=== PATIENT | male | born 1960 | race Caucasian/White ===

== ENCOUNTER → 2020-08-29 07:41 | Outpatient (CLI) | payer OTHER, SELFPAY ==
[2020-08-29 08:44] LABS: Alanine Aminotransferase 26 IU/L (<50); Albumin Globulin Ratio 1.4 (1.0-2.8); Alkaline Phosphatase 86 U/L (38-126); Aspartate Aminotransferase 30 IU/L (17-59); BUN Creatinine Ratio 17.4 (6-22); Bilirubin Total 0.5 mg/dL (0.2-1.3); Blood Urea Nitrogen 19 mg/dL (9-20); Calcium 9.3 mg/dL (8.4-10.2); Carbon Dioxide 25 mmol/L (22-32); Chloride 106 mmol/L (98-107); Cholesterol 221 mg/dL (140-199); Estimated Glomerular Filt Rate > 60.0 mL/min (>60); Globulin 2.8 g/dL (1.7-4.1); Glucose 104 mg/dL (70-100); HDL Cholesterol 43 mg/dL (40-60); HEMOLYSIS < 15 (0-50); LDL Cholesterol Calculated 157 mg/dL (<100); Potassium 4.4 mmol/L (3.4-5.1); Sodium 138 mmol/L (137-145); Total Protein 6.8 g/dL (6.3-8.2); Triglycerides 105 mg/dL (35-150)
[2020-09-04 08:30] LABS: Percent Free Testosterone 2.59 % (1.50-4.20); Testosterone Free 7.76 ng/dL (5.00-21.00); Testosterone Total 299.7 ng/dL (264.0-916.0)
== END ==
PROVIDERS: PCP Internal Medicine; Referring Provider Internal Medicine; Visit Provider Internal Medicine
DX: Z13.1 Encounter for screening for diabetes mellitus (principal); Z13.220 Encounter for screening for lipoid disorders; Z12.5 Encounter for screening for malignant neoplasm of prostate; E29.1 Testicular hypofunction
CPT/HCPCS: 36415; 80053; 80061; 84402; 84403; G0103

== ENCOUNTER → 2021-01-15 09:12 | Outpatient (CLI) | payer OTHER, SELFPAY ==
[2021-01-15 14:43] LABS: COVID19 -Nasal RAPID Negative (Negative)
== END ==
PROVIDERS: PCP Internal Medicine; Visit Provider Specialist
DX: Z01.812 Encounter for preprocedural laboratory examination (principal); Z20.822 Contact with and (suspected) exposure to COVID-19
CPT/HCPCS: 87635; C9803

== ENCOUNTER 2021-01-16 09:02 | Day surgery (SDC) | payer OTHER, SELFPAY ==
[2021-01-16 09:16] VITALS: BP 153/91; PULSE 91; RESP 14; TEMP 36.3; O2SAT 98; BMI 25.1
[2021-01-16] MEDS: LACTATED RINGERS 1,000 ML 200 ML IV (09:35)
--- NOTE | 2021-01-16 10:06 | PM.PREOP ---
Pre-operative Note COVID-19 COVID-19 status: Negative Result date/Date tested (Pos, Neg/Pending): 01/15/21 Interval Note History & Physical reviewed/Exam performed by Physician: Yes Changes to H&P: No ASA Class (for procedural sedation): I
[2021-01-16] MEDS: fentaNYL 250 MCG/5 ML INJ IV (10:26)
[2021-01-16] MEDS: MIDAZOLAM 5 MG/5 ML VIAL IV (10:26)
--- NOTE | 2021-01-16 10:41 | PM.OP.ENDO ---
Operative Date/Time/Diagnoses Date of procedure: 01/16/21 Time of procedure: 10:41 Pre-op diagnosis: Uncertain causes Post-op diagnosis: same (Hemorrhoid at the anal verge.) Procedure & Clinicians Study performed: Colonoscopy Same procedure as scheduled: Yes Indications: Rectal bleeding Surgeon: Jose M Ronquillo Procedure Notes SCOAP/Timeout: Performed Procedure in detail: The patient was placed in the left lateral decubitus position and underwent IV sedation directed by the surgeon consisting of fentanyl and Versed. Digital exam was unremarkable. Prostate normal in size for age. No masses.. The scope was inserted and advanced through the rectum into the sigmoid, descending, transverse, and ascending colon. No lesions were seen on the way in.. The cecum was reached identified by the ileocecal valve and the appendiceal opening. The ileocecal valve was briefly cannulated. The terminal ileum was normal in appearance. The scope was gradually brought out. No Polyps were found. Careful search in the sigmoid revealed 1 or 2 very small diverticulum. The scope ultimately was retroflexed in the rectum. The appearance was remarkable for small internal hemorrhoids.. The scope was removed slowly through the anus and I noted 1 hemorrhoid at the anal verge that may well have been the source of the patient's blood. The scope was completely removed And the patient tolerated the procedure well. The prep was very good. Scope withdrawal time: 8 minutes Sedation minutes: 23 Complications: none Post-procedure Recommendations: Colonscopy in 10 years Follow up: as needed Disposition: PACU
[2021-01-16 10:43] VITALS: BP 115/77; PULSE 85; RESP 10; TEMP 37.5; O2SAT 96
[2021-01-16 10:48] VITALS: BP 123/92; PULSE 84; RESP 12; O2SAT 95
[2021-01-16 10:53] VITALS: BP 126/85; PULSE 78; RESP 16; O2SAT 97
--- NOTE | 2021-01-16 10:58 | SUR.PHASEI ---
Received to PACU after colonoscopy. Report received from ALEXX Crespo.
[2021-01-16 11:20] VITALS: BP 125/81; PULSE 91; RESP 16; TEMP 37.3; O2SAT 97
--- NOTE | 2021-01-16 11:38 | SUR.PHASEII ---
Pt ready to go, left in stable condition.
== END 2021-01-16 11:20 | disposition home or self-care (01) ==
PROVIDERS: PCP Internal Medicine; Referring Provider Specialist; Visit Provider Specialist
PROC: 0DJD8ZZ Inspection of Lower Intestinal Tract, Via Natural or Artificial Opening Endoscopic (ICD-10-PCS; CPT 45378; principal; 2021-01-16 10:00)
DX: K62.5 Hemorrhage of anus and rectum (principal); K64.4 Residual hemorrhoidal skin tags
CPT/HCPCS: 45378; 99152; J2250; J3010

== ENCOUNTER → 2022-01-09 15:48 | Outpatient (CLI) | payer OTHER, SELFPAY ==
[2022-01-09 16:40] LABS: Alanine Aminotransferase 32 IU/L (<50); Albumin 4.3 g/dL (3.5-5.0); Albumin Globulin Ratio 1.3 (1.0-2.8); Alkaline Phosphatase 96 U/L (38-126); Aspartate Aminotransferase 34 IU/L (17-59); BUN Creatinine Ratio 13.8 (6-22); Bilirubin Total 0.6 mg/dL (0.2-1.3); Blood Urea Nitrogen 15 mg/dL (9-20); Calcium 8.7 mg/dL (8.4-10.2); Carbon Dioxide 27 mmol/L (22-32); Chloride 107 mmol/L (98-107); Cholesterol 233 mg/dL (140-199); Estimated Glomerular Filt Rate > 60 mL/min (>60); Globulin 3.3 g/dL (1.7-4.1); Glucose 118 mg/dL (80-110); HDL Cholesterol 40 mg/dL (40-60); HEMOLYSIS 29 (0-50); LDL Cholesterol Calculated 149 mg/dL (<100); Potassium 4.5 mmol/L (3.4-5.1); Sodium 141 mmol/L (137-145); Total Protein 7.6 g/dL (6.3-8.2); Triglycerides 218 mg/dL (35-150)
[2022-01-09 17:08] LABS: Prostate Specific Antigen Scrn 0.591 ng/mL (0.1-4.0)
[2022-01-19 13:48] LABS: Percent Free Testosterone 2.11 % (1.50-4.20); Testosterone Free 10.07 ng/dL (5.00-21.00); Testosterone Total 477.2 ng/dL (264.0-916.0)
== END ==
PROVIDERS: PCP Internal Medicine; Referring Provider Internal Medicine; Visit Provider Internal Medicine
DX: E29.1 Testicular hypofunction (principal); R79.89 Other specified abnormal findings of blood chemistry; Z13.1 Encounter for screening for diabetes mellitus; Z12.5 Encounter for screening for malignant neoplasm of prostate
CPT/HCPCS: 36415; 80053; 80061; 84402; 84403; G0103

== ENCOUNTER → 2023-05-21 10:20 | Outpatient (CLI) | payer OTHER, SELFPAY ==
[2023-05-21 11:29] LABS: Alanine Aminotransferase 28 IU/L (<50); Albumin 4.6 g/dL (3.5-5.0); Albumin Globulin Ratio 1.4 (1.0-2.8); Alkaline Phosphatase 71 U/L (38-126); Aspartate Aminotransferase 27 IU/L (17-59); BUN Creatinine Ratio 12.8 (6-22); Bilirubin Total 0.9 mg/dL (0.2-1.3); Blood Urea Nitrogen 15 mg/dL (9-20); Calcium 9.9 mg/dL (8.4-10.2); Carbon Dioxide 29 mmol/L (22-32); Chloride 102 mmol/L (98-107); Cholesterol 239 mg/dL (140-199); Estimated Glomerular Filt Rate > 60 mL/min (>60); Globulin 3.4 g/dL (1.7-4.1); Glucose 108 mg/dL (80-110); HDL Cholesterol 46 mg/dL (40-60); HEMOLYSIS < 15 (0-50); LDL Cholesterol Calculated 167 mg/dL (<100); Potassium 4.8 mmol/L (3.4-5.1); Sodium 139 mmol/L (137-145); Triglycerides 131 mg/dL (35-150)
[2023-05-21 11:58] LABS: Prostate Specific Antigen Scrn 0.706 ng/mL (0.1-4.0)
[2023-05-27 08:09] LABS: Percent Free Testosterone 1.72 % (1.50-4.20); Testosterone Free 8.79 ng/dL (5.00-21.00); Testosterone Total 510.8 ng/dL (264.0-916.0)
== END ==
PROVIDERS: PCP Internal Medicine; Referring Provider Internal Medicine; Visit Provider Internal Medicine
DX: E29.1 Testicular hypofunction (principal); R79.89 Other specified abnormal findings of blood chemistry; Z13.6 Encounter for screening for cardiovascular disorders; Z79.899 Other long term (current) drug therapy; Z12.5 Encounter for screening for malignant neoplasm of prostate
CPT/HCPCS: 36415; 80053; 80061; 84402; 84403; G0103

== ENCOUNTER 2024-11-07 16:39 | Emergency (ER) | payer BC, SELFPAY ==
[2024-11-07] VITALS (109 sets, daily range): BP systolic 70–175; BP diastolic 49–113; PULSE 95–125; RESP 18–36; TEMP 34.3–37; O2SAT 85–96
[2024-11-07] MEDS: SODIUM CHLORIDE 0.9% 1,000 ML 1000 ML IV (16:45)
--- NOTE | 2024-11-07 16:50 | EKG_ITS ---
[address] [address] Test Date: 2024-11-07 Pat Name: Dheeraj Champion Department: Room: Gender: Male [employer]: : [id number] Requested By: Order Number: [id number] Reading MD: John Petit MD Measurements Intervals [place] Rate: 112 P: 86 OR: 156 QRS: -72 QRSD: 174 T: 85 QT: 366 QTc: 499 Interpretive Statements Sinus tachycardia Right bundle branch block Left anterior fascicular block Bifascicular block NO PRIOR TRACING Electronically Signed On 11-07-2024 17:17:02 PDT by John Petit MD
--- NOTE | 2024-11-07 16:50 | DI.RAD.S_ITS ---
PROCEDURE: XR CHEST 1V INDICATIONS: cpr TECHNIQUE: One view of the chest was acquired. COMPARISON: None. FINDINGS: Surgical changes and devices: ET tube in satisfactory position. Lungs and pleura: Right greater than left fluffy pulmonary infiltrates. No pleural effusions or pneumothorax. Mediastinum: Mediastinal contours appear normal. Heart size is normal. Bones and chest wall: No suspicious bony lesions. Overlying soft tissues appear unremarkable. IMPRESSION: ET tube in satisfactory position. Asymmetric pulmonary edema versus bilateral pneumonia. Dictated by: Eder Salguero M.D. on 11/07/2024 at 17:03 Approved by: Eder Salguero M.D. on 11/07/2024 at 17:04
--- NOTE | 2024-11-07 16:51 | ED.CPR ---
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 Respiratory Rate 24 Blood Pressure 73/51 L 70/50 L Pulse Oximetry 94 Oxygen Delivery Method 11/07/24 21:06 11/07/24 21:09 11/07/24 21:09 Temperature 98.4 F 98.4 F Pulse Rate 101 H 101 H Respiratory Rate 24 23 Blood Pressure 80/54 L Pulse Oximetry 95 94 Oxygen Delivery Method 11/07/24 21:12 11/07/24 21:12 11/07/24 21:15 Temperature 98.6 F 98.6 F Pulse Rate 100 H 100 H Respiratory Rate 22 22 Blood Pressure 89/56 L Pulse Oximetry 94 94 Oxygen Delivery Method 11/07/24 21:15 11/07/24 21:18 11/07/24 21:18 Temperature 98.6 F Pulse Rate 100 H Respiratory Rate 21 Blood Pressure 90/53 L 92/57 L Pulse Oximetry 92 Oxygen Delivery Method 11/07/24 21:21 11/07/24 21:21 11/07/24 22:09 Temperature 98.6 F 98.4 F Pulse Rate 99 H 100 H Respiratory Rate 21 19 Blood Pressure 88/54 L Pulse Oximetry 92 94 Oxygen Delivery Method 11/07/24 22:09 11/07/24 22:12 11/07/24 22:12 Temperature 98.4 F Pulse Rate 100 H Respiratory Rate 19 Blood Pressure 92/55 L 90/57 L Pulse Oximetry 94 Oxygen Delivery Method 11/07/24 22:15 11/07/24 22:15 11/07/24 22:18 Temperature 98.4 F 98.4 F Pulse Rate 100 H 100 H Respiratory Rate 19 19 Blood Pressure 89/58 L Pulse Oximetry 95 94 Oxygen Delivery Method 11/07/24 22:18 11/07/24 22:21 11/07/24 22:21 Temperature 98.4 F Pulse Rate 99 H Respiratory Rate 19 Blood Pressure 90/56 L 90/55 L Pulse Oximetry 94 Oxygen Delivery Method 11/07/24 22:24 11/07/24 22:24 11/07/24 22:27 Temperature 98.4 F 98.4 F Pulse Rate 100 H 98 H Respiratory Rate 19 18 Blood Pressure 89/59 L Pulse Oximetry 94 95 Oxygen Delivery Method 11/07/24 22:27 11/07/24 22:30 11/07/24 22:30 Temperature 98.4 F Pulse Rate 99 H Respiratory Rate 19 Blood Pressure 89/58 L 90/58 L Pulse Oximetry 95 Oxygen Delivery Method 11/07/24 22:33 11/07/24 22:33 11/07/24 22:36 Temperature 98.4 F 98.4 F Pulse Rate 99 H 100 H Respiratory Rate 19 19 Blood Pressure 88/59 L Pulse Oximetry 93 95 Oxygen Delivery Method 11/07/24 22:36 11/07/24 22:39 11/07/24 22:39 Temperature 98.4 F Pulse Rate 99 H Respiratory Rate 19 Blood Pressure 93/59 L 110/64 Pulse Oximetry 95 Oxygen Delivery Method 11/07/24 22:42 11/07/24 22:42 11/07/24 22:45 Temperature 98.4 F 98.4 F Pulse Rate 98 H 98 H Respiratory Rate 20 19 Blood Pressure 92/53 L Pulse Oximetry 95 96 Oxygen Delivery Method 11/07/24 22:45 11/07/24 22:48 11/07/24 22:48 Temperature 98.4 F Pulse Rate 98 H Respiratory Rate 19 Blood Pressure 92/60 97/68 Pulse Oximetry 96 Oxygen Delivery Method 11/07/24 22:51 11/07/24 22:51 11/07/24 22:54 Temperature 98.4 F Pulse Rate 97 H Respiratory Rate 18 Blood Pressure 89/63 L 89/59 L Pulse Oximetry 96 Oxygen Delivery Method 11/07/24 22:54 11/07/24 22:57 11/07/24 22:57 Temperature 98.4 F 98.4 F Pulse Rate 97 H 97 H Respiratory Rate 18 18 Blood Pressure 96/64 Pulse Oximetry 96 96 Oxygen Delivery Method 11/07/24 23:00 11/07/24 23:00 11/07/24 23:03 Temperature 98.4 F 98.2 F Pulse Rate 101 H 100 H Respiratory Rate 22 20 Blood Pressure 98/66 Pulse Oximetry 94 94 Oxygen Delivery Method 11/07/24 23:03 11/07/24 23:06 11/07/24 23:06 Temperature 98.2 F Pulse Rate 99 H Respiratory Rate 20 Blood Pressure 94/63 93/65 Pulse Oximetry 95 Oxygen Delivery Method 11/07/24 23:09 11/07/24 23:09 11/07/24 23:12 Temperature 98.2 F 98.2 F Pulse Rate 98 H 96 H Respiratory Rate 19 18 Blood Pressure 99/60 Pulse Oximetry 94 94 Oxygen Delivery Method 11/07/24 23:12 11/07/24 23:15 11/07/24 23:15 Temperature 98.2 F Pulse Rate 95 H Respiratory Rate 19 Blood Pressure 103/57 L 97/52 L Pulse Oximetry 95 Oxygen Delivery Method 11/07/24 23:18 11/07/24 23:18 11/07/24 23:21 Temperature 98.2 F 98.2 F Pulse Rate 98 H 97 H Respiratory Rate 20 18 Blood Pressure 104/65 Pulse Oximetry 94 94 Oxygen Delivery Method Mechanical Ventilation 11/07/24 23:21 Temperature Pulse Rate Respiratory Rate Blood Pressure 104/66 Pulse Oximetry Oxygen Delivery Method MDM - Cardiac Arrest/CPR <Anne Collado, DO - Last Filed: 11/07/24 21:22> Lab Data 11/07/24 16:45 11/07/24 16:45 Labs: Lab Results 11/07/24 11/07/24 11/07/24 Range/Units 16:45 16:51 17:57 WBC 9.3 (4.5-11.0) X10^3/uL RBC 4.40 L (4.5-5.9) X10^6/uL Hgb 14.0 (13.5-17.5) g/dL Hct 43.8 (41-53) % MCV 99.7 (80-100) fL MCH 31.9 (26-34) PG MCHC 32.0 (30-36) % RDW 13.7 (11.6-14.8) % Plt Count 130 L (150-400) X10^3/uL Neut % (Auto) Not Reportable Lymph % (Auto) Not Reportable Victoria % (Auto) Not Reportable Eos % (Auto) Not Reportable Baso % (Auto) Not Reportable Neut # (Auto) Not Reportable Lymph # (Auto) Not Reportable Victoria # (Auto) Not Reportable Eos # (Auto) Not Reportable Baso # (Auto) Not Reportable Total Counted 100 Seg Neutrophils % 27.0 L (38-70) % Band Neutrophils % 16.0 H (3-7) % Lymphocytes % (Manual) 52.0 H (25-45) % Monocytes % (Manual) 5.0 (2-11) % Neutrophils # (Manual) 3999 (8182-5112) /uL RBC Morphology Normal morphology PT 13.3 H (9.4-12.5) SECONDS INR 1.2 (0.9-1.3) APTT 37 H (25.1-36.5) SECONDS D-Dimer 49150 H (<500) ng/ml ABG Sample Site Left radial Left radial ABG pH 6.85 L* 7.09 L* (7.35-7.45) ABG pCO2 63.8 H* 52.3 H (35-45) mmHg ABG pO2 68 L 68 L (80-100) mmHg ABG HCO3 11 L 16 L (23-27) mmol/L ABG Total CO2 12 L 16 L (23-27) mmol/L ABG O2 Saturation 73 L* 84 L* (95-100) % ABG Base Excess -23.1 L -14.2 L (-2-3) mmol/L Filiberto Test Positive Positive Respiration Rate 18 O2 Delivery Device Bagging Mode of Support Assist cont ventilat FiO2 % 100 % % PEEP or CPAP 8 Sodium 142 (137-145) mmol/L Potassium 2.9 L (3.4-5.1) mmol/L Chloride 108 H (98-107) mmol/L Carbon Dioxide 12 L (22-32) mmol/L BUN 11 (9-20) mg/dL Creatinine 1.53 H (0.66-1.25) mg/dL Estimated GFR 51 L (>60) mL/min BUN/Creatinine Ratio 7.2 (6-22) Glucose 314 H (70-99) mg/dL Calcium 7.1 L (8.4-10.2) mg/dL Magnesium 2.3 (1.6-2.3) mg/dL Total Bilirubin 0.9 (0.2-1.3) mg/dL Conjugated Bilirubin 0.0 (0.0-0.3) md/dL Unconjugated Bilirubin 0.2 (0.0-1.1) mg/dL AST 202 H (17-59) IU/L ALT 191 H (<50) IU/L Alkaline Phosphatase 61 (38-126) U/L Total Creatine Kinase 149 (55-170) U/L Troponin I 0.114 H (0.01-0.034) ng/mL NT-Pro-B Natriuret Pep 76 (<125) pg/mL Total Protein 5.1 L (6.3-8.2) g/dL Albumin 2.9 L (3.5-5.0) g/dL Globulin 2.2 (1.7-4.1) g/dL Albumin/Globulin Ratio 1.3 (1.0-2.8) Lipase 50 (23-300) U/L 11/07/24 11/07/24 Range/Units 18:07 22:38 WBC (4.5-11.0) X10^3/uL RBC (4.5-5.9) X10^6/uL Hgb (13.5-17.5) g/dL Hct (41-53) % MCV (80-100) fL MCH (26-34) PG MCHC (30-36) % RDW (11.6-14.8) % Plt Count (150-400) X10^3/uL Neut % (Auto) Lymph % (Auto) Victoria % (Auto) Eos % (Auto) Baso % (Auto) Neut # (Auto) Lymph # (Auto) Victoria # (Auto) Eos # (Auto) Baso # (Auto) Total Counted Seg Neutrophils % (38-70) % Band Neutrophils % (3-7) % Lymphocytes % (Manual) (25-45) % Monocytes % (Manual) (2-11) % Neutrophils # (Manual) (4079-9234) /uL RBC Morphology PT (9.4-12.5) SECONDS INR (0.9-1.3) APTT 36 (25.1-36.5) SECONDS D-Dimer (<500) ng/ml ABG Sample Site Left radial ABG pH 7.16 L* (7.35-7.45) ABG pCO2 38.3 (35-45) mmHg ABG pO2 68 L (80-100) mmHg ABG HCO3 14 L (23-27) mmol/L ABG Total CO2 13 L (23-27) mmol/L ABG O2 Saturation 88 L (95-100) % ABG Base Excess -14.3 L (-2-3) mmol/L Filiberto Test N/a Respiration Rate 18 O2 Delivery Device Adult ventilator Mode of Support Assist cont ventilat FiO2 % 100.0 % % PEEP or CPAP 8 Sodium (137-145) mmol/L Potassium (3.4-5.1) mmol/L Chloride (98-107) mmol/L Carbon Dioxide (22-32) mmol/L BUN (9-20) mg/dL Creatinine (0.66-1.25) mg/dL Estimated GFR (>60) mL/min BUN/Creatinine Ratio (6-22) Glucose (70-99) mg/dL Calcium (8.4-10.2) mg/dL Magnesium (1.6-2.3) mg/dL Total Bilirubin (0.2-1.3) mg/dL Conjugated Bilirubin (0.0-0.3) md/dL Unconjugated Bilirubin (0.0-1.1) mg/dL AST (17-59) IU/L ALT (<50) IU/L Alkaline Phosphatase (38-126) U/L Total Creatine Kinase (55-170) U/L Troponin I 1.320 H* (0.01-0.034) ng/mL NT-Pro-B Natriuret Pep (<125) pg/mL Total Protein (6.3-8.2) g/dL Albumin (3.5-5.0) g/dL Globulin (1.7-4.1) g/dL Albumin/Globulin Ratio (1.0-2.8) Lipase (23-300) U/L ECG Data Attestation: I personally reviewed and interpreted this ECG as follows: Prior ECG tracings: not available for review Interpretation: Wide complex tachycardia rate of 112 CA 156 QRS of 174 QTC of 499. No prior tracing for comparison. Right bundle-branch block, left anterior fascicular block. Elevation in 2 3 and AVF. No depression noted. MDM Narrative Medical decision making narrative: On ABG patient's pH is 6.8, pCO2 60 PO2 is 68, patient's O2 sats has been seen slowly improving while intubated, patient received bicarb as well as calcium gluconate continue with fluids epi drip completed and was switched to norepinephrine. Amiodarone drip . Fast exam shows no free fluid in the abdomen, no changes with the kidneys, no pericardial effusion on ultrasound, patient does have good squeeze. EKG shows sinus tach wide complex tachycardia with a rate of 112 CA 156 QRS of 1 or, QTC of 499. Patient has a ST elevation in 2 3 AVF. Labs normal white count, hemoglobin hematocrit are normal. Platelets are 130. Chest x-ray ET tube in satisfactory position asymmetric pulmonary edema versus bilateral pneumonia CT angio chest no PE, dependent consolidation left greater than right, findings may indicate large volume aspiration pelvic acute lung injury or severe pulmonary edema. Minimally displaced bilateral 2nd through 7th rib fractures without pneumothorax, minimally displaced anterior sternal body fracture with small superficial hematoma. Endotracheal tube is appropriately positioned with the trachea. Head CT no acute intracranial pathology chris-white matter differentiation is intact. CT cervical spine no displaced fracture or traumatic subluxation. Call to [facility] for post-ROSC. Spoke with the ED physician would have to go through cardiology rather than ED to ED transfer. Spoke with Dr. Walsh, ED physician at [facility] there was ST elevation in 2 3 AVF concern for STEMI versus PE. Patient he was so we talk with Cardiology. Spoke with Dr. Fabian @ [phone], he was not on for Interventional Cardiology. Asked that we talked to Interventional trying to transfer ED to ED for cardiac catheterization. Call back to ED at [facility] for cardiac interventionalist. Spoke with Nico and contact given. Spoke with Dr. Malloy @ [phone]. He requests that we sent him the EKG which he was sent immediately. He will review and call back if we should transfer ED to ED Dr. Malloy interventional cardiology at [facility] called back, states not STEMI EKG. Would not take to the mobile home laborer at this time would not heparinize. Does recommend transfer to facility with beds does agree with the continue with the amiodarone and electrolyte replacement. Calls out to multiple facilities in the region. Spoke with coordinator @ [phone] [place]. Spoke with multifocal lens inspector at [place], accepted by Dr. Martin. no bed currently. They noted with the patient's history has poor prognosis. Did discuss patient is started having some twitching could be myoclonic potentially no localized movements at this time. They note goal to kep patient normothermic. Spoke with the multifocal lens inspector at [facility] @ [phone], Dr. Omer accepts for transfer goal of temperature of 36? reviewed all patient's findings workup and treatment thus far. They will have a bed available shortly plan for transport. Patient has not had any well sedated with fentanyl after discussion and she was switched over to Versed patient had hypotensive after this so had norepinephrine restarted central line was placed in the right femoral with verbal consent from his . 11/07/24, Zion Roberts. Sign-out from Dr. Collado. 64-year-old male status post VFib arrest status post resuscitation ROSC. On vent. On amiodarone, heparin, fentanyl drips. Patient has been accepted to [facility], bed apparently available but not yet assigned. Patient had been cycling when he syncopized, EMS started CPR and found patient to have wide complex tachycardia, epi x4 in the field, shocked, amiodarone given, had return of spontaneous circulation, field ketamine/rocuronium has subsequently worn off, pre-hospital eye gel was removed with transition to endotracheal tube in ED, epi drip from EMS was transition to nor epi, hypertensive, weaned off all pressors. Chest x-ray showed [id number] infiltrates, possible aspiration, IV Unasyn. Head and C-spine imaging negative. CTA chest showed no PE, infiltrates present. Initial troponin indeterminate, rising on secondary troponin. Initial EKG sent to [facility], felt there was not STEMI, no mobile home laborer activation. IV heparin initiated due to rising troponin. Potassium low 2.9 noted, potassium infusions in progress. Accepted for transfer to [facility], Dr. Glass. Bed apparently available, awaiting assignment. Anticipate transfer later this evening. Assumed interim care. <Sridhar Donovan MD - Last Filed: 11/08/24 03:42> Lab Data Labs: Lab Results 11/07/24 11/07/24 11/07/24 Range/Units 16:45 16:51 17:57 WBC 9.3 (4.5-11.0) X10^3/uL RBC 4.40 L (4.5-5.9) X10^6/uL Hgb 14.0 (13.5-17.5) g/dL Hct 43.8 (41-53) % MCV 99.7 (80-100) fL MCH 31.9 (26-34) PG MCHC 32.0 (30-36) % RDW 13.7 (11.6-14.8) % Plt Count 130 L (150-400) X10^3/uL Neut % (Auto) Not Reportable Lymph % (Auto) Not Reportable Victoria % (Auto) Not Reportable Eos % (Auto) Not Reportable Baso % (Auto) Not Reportable Neut # (Auto) Not Reportable Lymph # (Auto) Not Reportable Victoria # (Auto) Not Reportable Eos # (Auto) Not Reportable Baso # (Auto) Not Reportable Total Counted 100 Seg Neutrophils % 27.0 L (38-70) % Band Neutrophils % 16.0 H (3-7) % Lymphocytes % (Manual) 52.0 H (25-45) % Monocytes % (Manual) 5.0 (2-11) % Neutrophils # (Manual) 3999 (2028-8099) /uL RBC Morphology Normal morphology PT 13.3 H (9.4-12.5) SECONDS INR 1.2 (0.9-1.3) APTT 37 H (25.1-36.5) SECONDS D-Dimer 62083 H (<500) ng/ml ABG Sample Site Left radial Left radial ABG pH 6.85 L* 7.09 L* (7.35-7.45) ABG pCO2 63.8 H* 52.3 H (35-45) mmHg ABG pO2 68 L 68 L (80-100) mmHg ABG HCO3 11 L 16 L (23-27) mmol/L ABG Total CO2 12 L 16 L (23-27) mmol/L ABG O2 Saturation 73 L* 84 L* (95-100) % ABG Base Excess -23.1 L -14.2 L (-2-3) mmol/L Filiberto Test Positive Positive Respiration Rate 18 O2 Delivery Device Bagging Mode of Support Assist cont ventilat FiO2 % 100 % % PEEP or CPAP 8 Sodium 142 (137-145) mmol/L Potassium 2.9 L (3.4-5.1) mmol/L Chloride 108 H (98-107) mmol/L Carbon Dioxide 12 L (22-32) mmol/L BUN 11 (9-20) mg/dL Creatinine 1.53 H (0.66-1.25) mg/dL Estimated GFR 51 L (>60) mL/min BUN/Creatinine Ratio 7.2 (6-22) Glucose 314 H (70-99) mg/dL Calcium 7.1 L (8.4-10.2) mg/dL Magnesium 2.3 (1.6-2.3) mg/dL Total Bilirubin 0.9 (0.2-1.3) mg/dL Conjugated Bilirubin 0.0 (0.0-0.3) md/dL Unconjugated Bilirubin 0.2 (0.0-1.1) mg/dL AST 202 H (17-59) IU/L ALT 191 H (<50) IU/L Alkaline Phosphatase 61 (38-126) U/L Total Creatine Kinase 149 (55-170) U/L Troponin I 0.114 H (0.01-0.034) ng/mL NT-Pro-B Natriuret Pep 76 (<125) pg/mL Total Protein 5.1 L (6.3-8.2) g/dL Albumin 2.9 L (3.5-5.0) g/dL Globulin 2.2 (1.7-4.1) g/dL Albumin/Globulin Ratio 1.3 (1.0-2.8) Lipase 50 (23-300) U/L 11/07/24 11/07/24 Range/Units 18:07 22:38 WBC (4.5-11.0) X10^3/uL RBC (4.5-5.9) X10^6/uL Hgb (13.5-17.5) g/dL Hct (41-53) % MCV (80-100) fL MCH (26-34) PG MCHC (30-36) % RDW (11.6-14.8) % Plt Count (150-400) X10^3/uL Neut % (Auto) Lymph % (Auto) Victoria % (Auto) Eos % (Auto) Baso % (Auto) Neut # (Auto) Lymph # (Auto) Victoria # (Auto) Eos # (Auto) Baso # (Auto) Total Counted Seg Neutrophils % (38-70) % Band Neutrophils % (3-7) % Lymphocytes % (Manual) (25-45) % Monocytes % (Manual) (2-11) % Neutrophils # (Manual) (6152-7329) /uL RBC Morphology PT (9.4-12.5) SECONDS INR (0.9-1.3) APTT 36 (25.1-36.5) SECONDS D-Dimer (<500) ng/ml ABG Sample Site Left radial ABG pH 7.16 L* (7.35-7.45) ABG pCO2 38.3 (35-45) mmHg ABG pO2 68 L (80-100) mmHg ABG HCO3 14 L (23-27) mmol/L ABG Total CO2 13 L (23-27) mmol/L ABG O2 Saturation 88 L (95-100) % ABG Base Excess -14.3 L (-2-3) mmol/L Filiberto Test N/a Respiration Rate 18 O2 Delivery Device Adult ventilator Mode of Support Assist cont ventilat FiO2 % 100.0 % % PEEP or CPAP 8 Sodium (137-145) mmol/L Potassium (3.4-5.1) mmol/L Chloride (98-107) mmol/L Carbon Dioxide (22-32) mmol/L BUN (9-20) mg/dL Creatinine (0.66-1.25) mg/dL Estimated GFR (>60) mL/min BUN/Creatinine Ratio (6-22) Glucose (70-99) mg/dL Calcium (8.4-10.2) mg/dL Magnesium (1.6-2.3) mg/dL Total Bilirubin (0.2-1.3) mg/dL Conjugated Bilirubin (0.0-0.3) md/dL Unconjugated Bilirubin (0.0-1.1) mg/dL AST (17-59) IU/L ALT (<50) IU/L Alkaline Phosphatase (38-126) U/L Total Creatine Kinase (55-170) U/L Troponin I 1.320 H* (0.01-0.034) ng/mL NT-Pro-B Natriuret Pep (<125) pg/mL Total Protein (6.3-8.2) g/dL Albumin (3.5-5.0) g/dL Globulin (1.7-4.1) g/dL Albumin/Globulin Ratio (1.0-2.8) Lipase (23-300) U/L MDM Narrative Medical decision making narrative: On ABG patient's pH is 6.8, pCO2 60 PO2 is 68, patient's O2 sats has been seen slowly improving while intubated, patient received bicarb as well as calcium gluconate continue with fluids epi drip completed and was switched to norepinephrine. Amiodarone drip . Fast exam shows no free fluid in the abdomen, no changes with the kidneys, no pericardial effusion on ultrasound, patient does have good squeeze. EKG shows sinus tach wide complex tachycardia with a rate of 112 CA 156 QRS of 1 or, QTC of 499. Patient has a ST elevation in 2 3 AVF. Labs normal white count, hemoglobin hematocrit are normal. Platelets are 130. Chest x-ray ET tube in satisfactory position asymmetric pulmonary edema versus bilateral pneumonia CT angio chest no PE, dependent consolidation left greater than right, findings may indicate large volume aspiration pelvic acute lung injury or severe pulmonary edema. Minimally displaced bilateral 2nd through 7th rib fractures without pneumothorax, minimally displaced anterior sternal body fracture with small superficial hematoma. Endotracheal tube is appropriately positioned with the trachea. Head CT no acute intracranial pathology chris-white matter differentiation is intact. CT cervical spine no displaced fracture or traumatic subluxation. Call to [facility] for post-ROSC. Spoke with the ED physician would have to go through cardiology rather than ED to ED transfer. Spoke with Dr. Walsh, ED physician at [facility] there was ST elevation in 2 3 AVF concern for STEMI versus PE. Patient he was so we talk with Cardiology. Spoke with Dr. Fabian @ [phone], he was not on for Interventional Cardiology. Asked that we talked to Interventional trying to transfer ED to ED for cardiac catheterization. Call back to ED at [facility] for cardiac interventionalist. Spoke with Nico and contact given. Spoke with Dr. Malloy @ [phone]. He requests that we sent him the EKG which he was sent immediately. He will review and call back if we should transfer ED to ED Dr. Malloy interventional cardiology at [facility] called back, states not STEMI EKG. Would not take to the mobile home laborer at this time would not heparinize. Does recommend transfer to facility with beds does agree with the continue with the amiodarone and electrolyte replacement. Calls out to multiple facilities in the region. Spoke with coordinator @ [phone] [place]. Spoke with multifocal lens inspector at [place], accepted by Dr. Martin. no bed currently. They noted with the patient's history has poor prognosis. Did discuss patient is started having some twitching could be myoclonic potentially no localized movements at this time. They note goal to kep patient normothermic. Spoke with the multifocal lens inspector at [facility] @ [phone], Dr. Omer accepts for transfer goal of temperature of 36? reviewed all patient's findings workup and treatment thus far. They will have a bed available shortly plan for transport. Patient has not had any well sedated with fentanyl after discussion and she was switched over to Versed patient had hypotensive after this so had norepinephrine restarted central line was placed in the right femoral with verbal consent from his . 11/07/242029, Donovan. Sign-out from Dr. Collado. 64-year-old male status post VFib arrest ROSC after prehospital resuscitation. On vent. On amiodarone, heparin, fentanyl drips. Patient had been cycling when he syncopized, EMS started CPR and found patient to have wide complex tachycardia, epi x4 in the field, shocked, amiodarone given, had return of spontaneous circulation, field ketamine/rocuronium has subsequently worn off, pre-hospital eye gel was removed with transition to endotracheal tube in ED, epi drip from EMS was transition to nor epi, hypertensive, weaned off all pressors. Later IV sedation, drop in blood pressure, pressors restarted, femoral line placed by Dr. Collado. Chest x-ray showed [id number] infiltrates, possible aspiration, IV Unasyn. Head and C-spine imaging negative. CTA chest showed no PE, infiltrates present. Initial troponin indeterminate, rising on secondary troponin. Kurtz initiated for non STEMI. Initial EKG sent to [facility], felt there was no STEMI, no mobile home laborer activation. IV heparin initiated due to rising troponin. Potassium low 2.9 noted, potassium infusions in progress. Accepted for transfer to [facility], then also at [facility], awaiting bed assignment. Assumed interim care. 2139, patient accepted 1st for transfer to [facility]. Bed also assigned, will arrange ALS EMS transport. Critical Care Time <Anne Collado, DO - Last Filed: 11/07/24 21:22> Critical Care Time Critical Care Time: Yes Total Critical Care Time: 65 Attestation: The high probability of a clinically significant, sudden or life threatening deterioration of the cardiac/pulmonary system(s) required my full and direct attention, intervention and personal management. The aggregate critical care time was [--] minutes. This time is in addition to time spent performing reported procedures but includes the following: [x] Data Review and interpretation [x] Patient assessment and monitoring of vital signs [x] Documentation [x] Medication orders and management Discharge Plan Departure Patient Disposition: [facility] Clinical Impression: Cardiac arrest, Wide-complex tachycardia, Closed rib fracture, Sternal fracture, Hypokalemia Prescriptions: No Action testosterone 1 % (50 mg/5 gram) gel in packet 50 mg transdermal DAILY Qty: 150 2RF Referrals: John Petit MD [Primary Care Provider, Internal Medicine]
[2024-11-07] MEDS: CALCIUM GLUCONATE 4.65 MEQ in SODIUM CHLORIDE 0.9% 50 ML 180 MEQ IV (16:55)
[2024-11-07 16:56] LABS: Allen Test for ABG Passed? Positive; Blood Gas Collection Site Left Radial; Delivery System Bagging; HCO3 ABG 11 mmol/L (23-27); Oxygen Saturation ABG 73 % (95-100); PCO2 ABG 63.8 mmHg (35-45); PO2 ABG 68 mmHg (80-100); TCO2 ABG 12 mmol/L (23-27)
--- NOTE | 2024-11-07 16:57 | DI.CT.S_ITS ---
PROCEDURE: CT ANGIO CHEST PE PROTOCOL INDICATIONS: cardiac arrest TECHNIQUE: After the administration of intravenous contrast, 2 mm thick sections acquired from the pulmonary apices to the posterior costophrenic angles. 3-dimensional maximum intensity projection (MIP) coronal and sagittal reformats were then acquired through the thorax. For radiation dose reduction, the following was used: automated exposure control, adjustment of mA and/or kV according to patient size. COMPARISON: None. FINDINGS: Image quality: Diagnostic. Pulmonary arteries: Pulmonary arteries are normal in size, and demonstrate no intraluminal filling defects to suggest central pulmonary embolism. Lower Neck: No enlarged lymph nodes. Thyroid: No thyroid nodules which require sonographic follow up, per consensus guidelines. Axillae: No enlarged lymph nodes. Chest Wall: Unremarkable. Bones: Minimally displaced bilateral anterior/lateral 2nd to 7th ribs . Minimally displaced anterior sternal body fracture, with small anterior sternal hematoma. Lungs and Pleura: There are dependent opacities in the lungs, with superimposed smooth interstitial thickening, left greater than right. Airways are clear. No pneumothorax. Heart: Heart size is normal. No pericardial effusion. Moderate coronary calcifications. Thoracic Vessels: No aortic aneurysm. Mediastinum and [place]: No enlarged lymph nodes. Esophagus: No wall thickening. No hiatal hernia. Upper Abdomen: Visualized upper abdomen solid organs and bowel loops appear normal. IMPRESSION: No pulmonary embolus. Dependent consolidation, left greater than right. Findings may indicate large volume aspiration, developing acute lung injury or severe pulmonary edema. Minimally displaced bilateral and 2nd through 7th rib fractures, without pneumothorax. Minimally displaced anterior sternal body fracture, with small superficial hematoma. Endotracheal tube is appropriately positioned within the trachea. Dictated by: Gabriel Pope M.D. on 11/07/2024 at 17:48 Approved by: Gabriel Pope M.D. on 11/07/2024 at 17:53
--- NOTE | 2024-11-07 17:03 | DI.CT.S_ITS ---
PROCEDURE: CT HEAD/BRAIN WO CON INDICATIONS: cardiac arrest TECHNIQUE: Noncontrast 4.5 mm thick angled axial sections acquired from the foramen magnum to the vertex, with coronal and sagittal reformats. For radiation dose reduction, the following was used: automated exposure control, adjustment of mA and/or kV according to patient size. COMPARISON: None. FINDINGS: Image quality: Diagnostic. CSF spaces: Basal cisterns are patent. No extra-axial fluid collections. The ventricles are symmetric in size and shape. Brain: No intracranial bleeds or mass effect. There is cerebral volume loss, with resultant ventricular and sulcal prominence. There are periventricular and deep white matter chronic small vessel ischemic changes. There is intracranial internal carotid artery atherosclerosis. Skull and face: Calvarium and visualized facial bones appear intact, without suspicious lesions. Sinuses: Visualized sinuses and mastoids are clear. IMPRESSION: No acute intracranial pathology. Huggins-white matter differentiation is intact. Dictated by: Gabriel Pope M.D. on 11/07/2024 at 17:46 Approved by: Gabriel Pope M.D. on 11/07/2024 at 17:47
[2024-11-07] MEDS: NOREPINEPHRINE BITARTRATE/D5W 4 MG/250 ML PLAST..BAG 32.319 MG IV (17:05)
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
[2024-11-07] MEDS: AMIODARONE 360 MG/200 ML PIGGYBACK 33.33 MG IV (17:09)
[2024-11-07 17:15] LABS: Hematocrit 43.8 % (41-53); Hemoglobin 14.0 g/dL (13.5-17.5); Mean Corpuscular HGB Conc 32.0 % (30-36); Mean Corpuscular Hemoglobin 31.9 PG (26-34); Mean Corpuscular Volume 99.7 fL (80-100); Platelet Count 130 X10^3/uL (150-400)
[2024-11-07 17:18] LABS: INR 1.2 (0.9-1.3); Prothrombin Time 13.3 SECONDS (9.4-12.5)
[2024-11-07 17:20] LABS: PTT Partial Thromboplastin Tim 37 SECONDS (25.1-36.5)
[2024-11-07 17:23] LABS: Alanine Aminotransferase 191 IU/L (<50); Albumin 2.9 g/dL (3.5-5.0); Albumin Globulin Ratio 1.3 (1.0-2.8); Alkaline Phosphatase 61 U/L (38-126); Blood Urea Nitrogen 11 mg/dL (9-20); Calcium 7.1 mg/dL (8.4-10.2); Carbon Dioxide 12 mmol/L (22-32); Chloride 108 mmol/L (98-107); Creatine Kinase 149 U/L (55-170); Estimated Glomerular Filt Rate 51 mL/min (>60); Globulin 2.2 g/dL (1.7-4.1); Glucose 314 mg/dL (70-99); Lipase 50 U/L (23-300); Sodium 142 mmol/L (137-145); Total Protein 5.1 g/dL (6.3-8.2)
[2024-11-07 17:26] LABS: HEMOLYSIS 92 (0-50)
[2024-11-07 17:27] LABS: Potassium 2.9 mmol/L (3.4-5.1)
[2024-11-07 17:32] LABS: Add Manual Diff / Slide Review YES; NT-proBNP (BNP-Adult 18+) 76 pg/mL (<125)
[2024-11-07 17:34] LABS: Troponin I 0.114 ng/mL (0.01-0.034)
[2024-11-07 17:36] LABS: Band Neutrophils Percent 16.0 % (3-7); Lymphocytes Percent Manual 52.0 % (25-45); Monocytes Percent Manual 5.0 % (2-11); Neutrophils Absolute Manual 3999 /uL (3000-5900); RBC Morphology Normal Morphology; Segmented Neutrophils Percent 27.0 % (38-70); Total Cells Counted 100
[2024-11-07] MEDS: POTASSIUM CHLORIDE IN WATER 10 MEQ/100 ML PIGGYBACK 100 MEQ IV ×4 (17:42→20:57)
[2024-11-07 17:48] LABS: Magnesium 2.3 mg/dL (1.6-2.3)
[2024-11-07 18:04] LABS: Allen Test for ABG Passed? Positive; Blood Gas Collection Site Left Radial; Blood Gas Mode Assist Cont Ventilat; HCO3 ABG 16 mmol/L (23-27); Oxygen Saturation ABG 84 % (95-100); PCO2 ABG 52.3 mmHg (35-45); PEEP 8; PO2 ABG 68 mmHg (80-100); TCO2 ABG 16 mmol/L (23-27)
[2024-11-07] MEDS: LIDOCAINE 2% (GLYDO) 6 ML GEL TOP (18:05)
[2024-11-07] MEDS: SODIUM CHLORIDE 0.9% 1,000 ML 150 ML IV (18:30)
[2024-11-07] MEDS: SODIUM BICARB 8.4% SYRINGE 50 MEQ IV (18:55)
[2024-11-07 19:35] LABS: Troponin I 1.320 ng/mL (0.01-0.034)
[2024-11-07] MEDS: fentaNYL 1,000 MCG in DEXTROSE 5% IN WATER 230 ML 15.082 MCG IV (19:45)
[2024-11-07] MEDS: fentaNYL 100 MCG/2 ML INJ 50 MCG IV (19:46)
[2024-11-07] MEDS: HEPARIN 5,000 UNIT/ML VIAL 5000 UNIT IV (20:06)
[2024-11-07] MEDS: HEPARIN DRIP 25,000 UNIT/500 ML IV.SOLN 20.684 UNIT IV (20:06)
[2024-11-07] MEDS: MIDAZOLAM 2 MG/2 ML VIAL IV ×2 (20:15→20:54)
[2024-11-07 20:28] LABS: PTT Partial Thromboplastin Tim 36 SECONDS (25.1-36.5)
[2024-11-07] MEDS: AMPICILLIN/SULBACTAM 3 GM 3 GM in SODIUM CHLORIDE 0.9% 100 ML IV (20:34)
[2024-11-07] MEDS: MIDAZOLAM 50 MG in DEXTROSE 5 % IN WATER 40 ML IV (21:20)
--- NOTE | 2024-11-07 21:36 | PC.NURSE ---
Ice packs applied to bilateral arm pits and 1 to groin to provide cooling per provider. Goal temp 96.8, temp currently 98.6. Right tibial IO removed. Patient currently with femoral cath, 3 18G and 1 20g PIV.
[2024-11-07] MEDS: AMIODARONE 360 MG/200 ML PIGGYBACK 16.7 MG IV (22:44)
[2024-11-07 22:46] LABS: Blood Gas Collection Site Left Radial; Blood Gas Mode Assist Cont Ventilat; Delivery System Adult Ventilator; HCO3 ABG 14 mmol/L (23-27); Oxygen Saturation ABG 88 % (95-100); PCO2 ABG 38.3 mmHg (35-45); PEEP 8; PO2 ABG 68 mmHg (80-100); TCO2 ABG 13 mmol/L (23-27)
--- NOTE | 2024-11-21 15:39 | PC.NURSE ---
late entry per RN all IV medications continued to infuse when patient transfered to another facility.
== END 2024-11-07 23:32 | disposition short-term general hospital (02) ==
PROVIDERS: Emergency Medicine; Emergency Provider Emergency Medicine; PCP Internal Medicine
DX: I46.9 Cardiac arrest, cause unspecified (principal); R00.0 Tachycardia, unspecified; S22.43XA Multiple fractures of ribs, bilateral, initial encounter for closed fracture; S22.20XA Unspecified fracture of sternum, initial encounter for closed fracture; E87.6 Hypokalemia
CPT/HCPCS: 36415; 36556; 36600; 70450; 71045; 71275; 72125; 80048; 80076; 82550; 82805; 83690; 83735; 83880; 84484; 85007; 85025; 85379; 85610; 85730; 93005; 93010; 94760; 94799; 96365; 96366; 96367; 96368; 96375; 96376; 99284; 99291; J0282; J0295; J0612; J1644; J2250; J3010; Q9967

== ENCOUNTER → 2025-02-14 15:37 | Outpatient (CLI) | payer BC, SELFPAY ==
[2025-01-02 13:56] VITALS: PULSE 100; RESP 19; O2SAT 95
[2025-02-14 17:35] LABS: Blood Urea Nitrogen 21 mg/dL (9-20); Calcium 9.1 mg/dL (8.4-10.2); Carbon Dioxide 21 mmol/L (22-32); Chloride 107 mmol/L (98-107); Estimated Glomerular Filt Rate 57 mL/min (>60); Glucose 86 mg/dL (70-99); HEMOLYSIS < 15 (0-50); Potassium 4.0 mmol/L (3.4-5.1); Sodium 139 mmol/L (137-145)
== END ==
PROVIDERS: PCP Internal Medicine; Referring Provider Nurse Practitioner; Visit Provider Nurse Practitioner
DX: I13.10 Hypertensive heart and chronic kidney disease without heart failure, with stage 1 through stage 4 chronic kidney disease, or unspecified chronic kidney disease (principal); I25.10 Atherosclerotic heart disease of native coronary artery without angina pectoris; I50.22 Chronic systolic (congestive) heart failure
CPT/HCPCS: 36415; 80048

== ENCOUNTER → 2025-03-20 09:09 | Outpatient (CLI) | payer BC, SELFPAY ==
[2025-01-02 13:56] VITALS: PULSE 100; RESP 19; O2SAT 95
== END ==
LOC: ECHO 09:10
PROVIDERS: PCP Internal Medicine; Referring Provider Internal Medicine Cardiovascular Disease; Visit Provider Internal Medicine Cardiovascular Disease
DX: I08.1 Rheumatic disorders of both mitral and tricuspid valves (principal); I25.5 Ischemic cardiomyopathy
CPT/HCPCS: 93306; Q9957

== ENCOUNTER → 2025-04-09 11:13 | Outpatient (CLI) | payer BC, SELFPAY ==
[2025-01-02 13:56] VITALS: PULSE 100; RESP 19; O2SAT 95
[2025-04-09 11:59] LABS: Hematocrit 42.8 % (41-53); Hemoglobin 14.4 g/dL (13.5-17.5); Mean Corpuscular HGB Conc 33.6 % (30-36); Mean Corpuscular Hemoglobin 30.9 PG (26-34); Mean Corpuscular Volume 92.0 fL (80-100); Platelet Count 169 X10^3/uL (150-400)
[2025-04-09 12:18] LABS: Blood Urea Nitrogen 18 mg/dL (9-20); Calcium 9.1 mg/dL (8.4-10.2); Carbon Dioxide 23 mmol/L (22-32); Chloride 108 mmol/L (98-107); Estimated Glomerular Filt Rate 57 mL/min (>60); Glucose 79 mg/dL (70-99); HEMOLYSIS < 15 (0-50); Potassium 3.9 mmol/L (3.4-5.1); Sodium 141 mmol/L (137-145)
[2025-04-09 12:26] LABS: NT-proBNP (BNP-Adult 18+) 1270 pg/mL (<125)
== END ==
PROVIDERS: PCP Internal Medicine; Referring Provider Internal Medicine Cardiovascular Disease; Visit Provider Internal Medicine Cardiovascular Disease
DX: I50.22 Chronic systolic (congestive) heart failure (principal)
CPT/HCPCS: 36415; 80048; 83880; 85027

== ENCOUNTER → 2025-05-07 16:21 | Outpatient (CLI) | payer BC, SELFPAY ==
[2025-01-02 13:56] VITALS: PULSE 100; RESP 19; O2SAT 95
[2025-05-07 17:40] LABS: Blood Urea Nitrogen 22 mg/dL (9-20); Calcium 9.1 mg/dL (8.4-10.2); Carbon Dioxide 26 mmol/L (22-32); Chloride 106 mmol/L (98-107); Estimated Glomerular Filt Rate 54 mL/min (>60); Glucose 80 mg/dL (70-99); HEMOLYSIS < 15 (0-50); Potassium 4.0 mmol/L (3.4-5.1); Sodium 140 mmol/L (137-145)
== END ==
PROVIDERS: PCP Internal Medicine; Referring Provider Registered Nurse; Visit Provider Registered Nurse
DX: I50.20 Unspecified systolic (congestive) heart failure (principal)
CPT/HCPCS: 36415; 80048